=== PATIENT | female | born 1985 | race Caucasian/White ===

== ENCOUNTER 2019-05-03 17:33 | Emergency (ER) | payer BC ==
[2019-05-03 17:55] LABS: #Basophils 0.1 thou/uL (0.0-0.2); #Eosinphils 0.1 thou/uL (0.0-0.7); #Monocytes 0.5 thou/uL (0.11-0.59); #Neutrophils 6.5 thou/uL (1.40-6.50); %Eosinophils 0.7 % (0.0-10.0); %Lymphocytes 29.6 % (21.0-51.0); %Monocytes 4.5 % (0.0-10.0); %Neutrophils 64.3 % (42.0-75.0); Hemoglobin 13.7 g/dL (12.0-16.0); Mean Corpuscular HGB CONC 33.8 g/dL (32.0-36.0); Mean Corpuscular Hemoglobin 29.2 pg (27.0-31.0); Mean Corpuscular Volume 86.5 fL (78.0-98.0); Mean Platelet Volume 7.2 fL (7.4-10.4); Platelet Count 294 thou/uL (130-400); RBC Distribution Width 11.8 % (11.5-14.5); White Blood Cell (WBC) Count 10.2 thou/uL (4.8-10.8)
[2019-05-03 17:58] LABS: BHCG - Serum Negative (NEGATIVE); Pregs Control Background? CLEAR/WHITE (CLR/WHITE); Pregs Control Bar Appear? YES (CONTROL BAR)
[2019-05-03 18:04] LABS: Bilirubin Negative (Negative); Blood, Urine Negative (Negative); Clarity Clear (Clear); Glucose, Urine (Dipstick) Normal (Negative); Leukocyte Negative Leu/uL (Negative); Nitrite Negative (Negative); Protein, Urine (Dipstick) Negative (Neg-Trace); Urobilinogen Normal mg/dL (Less than 2)
[2019-05-03 18:20] LABS: ALT (SGPT) 18 U/L (8-55); AST (SGOT) 15 U/L (5-34); Albumin 4.4 g/dL (3.5-5.0); Alkaline Phosphatase 63 U/L (40-110); Anion Gap 12 mmol/L (10-20); BUN (Urea Nitrogen) 14 mg/dL (7.0-18.7); Bilirubin, Total 0.2 mg/dL (0.2-1.2); Calc. Creatinine Clearance 0 mL/min (70-130); Calcium 9.5 mg/dL (7.8-10.44); Carbon Dioxide 27 mmol/L (22-29); Chloride 105 mmol/L (98-107); Estimated GFR-MDRD 82; Globulin 2.9 g/dL (2.4-3.5); Glucose 95 mg/dL (70-105); Lipase 25 U/L (8-78); Potassium 3.8 mmol/L (3.5-5.1); Protein, Total 7.3 g/dL (6.0-8.3); Sodium 140 mmol/L (136-145)
[2019-05-03] MEDS ORDERED: Morphine 4 MG/ML VIAL ONE (18:24)
[2019-05-03] MEDS ORDERED: Ondansetron PF 4 MG/2 ML Vial ONE (18:24)
--- NOTE | 2019-05-03 20:41 | ULT ---
RIGHT UPPER QUADRANT ULTRASOUND: 05/03/19 HISTORY: Right upper quadrant abdominal pain. FINDINGS: Limited visualized portions of the pancreas demonstrate a normal sonographic appearance, but the og rity of the pancreas is obscured due to shadowing from bowel gas. The visualized portions of the IVC demonstrate a normal sonographic appearance. The liver demonstrates slight nonspecific heterogeneity, but no focal hepatic lesion is seen. The gallbladder is contracted limiting evaluation, no obvious gallbladder calculus is appreciated. Th e common duct is normal in caliber measuring 0.1 cm in diameter. The right kidney has a normal sonogr aphic appearance and measures 11.1 cm in length. IMPRESSION: 1. Gallbladder is contracted which limits adequate evaluation, but no definite gallbladder calcu zakiya is seen, and there is no pericholecystic fluid. If there is persistent concern for gallbladder pa thology, follow-up imaging of the gallbladder after appropriate fasting, is recommended. 2. Slight nonspecific heterogeneity of the liver without focal hepatic lesion. POS: [facility]
== END 2019-05-03 20:59 | disposition home or self-care (01) ==
LOC: ERS 17:33
DX: K80.50 Calculus of bile duct without cholangitis or cholecystitis without obstruction (principal); E78.5 Hyperlipidemia, unspecified
CPT/HCPCS: 36415; 76705; 80053; 81003; 83690; 84703; 85025; 96361; 96374; 96375; J2270; J2405

== ENCOUNTER 2019-05-10 11:16 | Outpatient (CLI) | payer BC ==
--- NOTE | 2019-05-10 12:09 | ULT ---
EXAM: US Gallbladder RUQ CLINICAL HISTORY: Biliary colic. COMPARISON: 05/03/2019 FINDINGS: Evaluation is limited due to prominent bowel. Pancreas: The head of the pancreas has a normal echotexture. The remainder the pancreas is obscured by bowel gas Liver:Heterogeneous echotexture liver may be due to hepatic steatosis or hepatocellular disease. Limi michael evaluation for hepatic masses and intrahepatic biliary dilatation. Right hepatic lobe measures 15.6 cm. Gallbladder: No sonographic evidence of cholelithiasis, gallbladder wall thickening or pericholecysti c fluid Tyson's sign:Positive Portal Vein: Patent. Appropriate directional flow Bile ducts: Common bile duct diameter 0.32 cm Right kidney: No hydronephrosis. Right kidney measures 11.9 cm cm in length. IMPRESSION: 1. No sonographic evidence of cholelithiasis. However, there is a positive Tyson's sign. If there is concern for acalculus cholecystitis, consider HIDA scan. 2. Heterogeneous echotexture of the liver which may be due to hepatic steatosis or hepatocellular dis ease. There is concern for liver masses, abdomen MRI or liver mass protocol CT can be performed.
== END 2019-05-10 11:17 | disposition home or self-care (01) ==
LOC: SCSULT 11:16
PROVIDERS: ATTEND Surgery
DX: K80.50 Calculus of bile duct without cholangitis or cholecystitis without obstruction (principal); R93.2 Abnormal findings on diagnostic imaging of liver and biliary tract
CPT/HCPCS: 76705

== ENCOUNTER 2019-05-24 08:48 | Outpatient (CLI) | payer BC ==
--- NOTE | 2019-05-24 11:52 | NM ---
EXAM: NM Hida Scan W Drug PROVIDED CLINICAL HISTORY: Right upper quadrant abdominal pain COMPARISON: None FINDINGS: There is normal uptake and excretion of radiotracer by the liver. Gallbladder activity is faintly vis ualized by 22 minutes with increasing activity in the gallbladder imaging up to 60 minutes. Bowel activity is visualized by approximately 15 minutes. After 60 minutes of imaging, 8 ounces of ensure w as administered by mouth, and a gallbladder ejection fraction of greater than 90% was obtained. A normal gallbladder ejection fraction is greater than 33%. IMPRESSION: 1. No evidence of cystic or common duct obstruction. 2. Normal gallbladder ejection fraction.
== END 2019-05-24 08:49 | disposition home or self-care (01) ==
LOC: NM 08:48
PROVIDERS: ATTEND Surgery
DX: R10.11 Right upper quadrant pain (principal)
CPT/HCPCS: 78227; A9537

== ENCOUNTER 2021-02-01 15:03 | Outpatient (CLI) | payer BC ==
[2021-02-01 16:28] LABS: ALT (SGPT) 12 U/L (8-55); AST (SGOT) 15 U/L (5-34); Albumin 4.1 g/dL (3.5-5.0); Alkaline Phosphatase 77 U/L (40-110); Anion Gap 12 mmol/L (10-20); BUN (Urea Nitrogen) 13 mg/dL (7.0-18.7); Bilirubin, Direct 0.1 mg/dL (0.1-0.3); Bilirubin, Total 0.3 mg/dL (0.2-1.2); Calc. Creatinine Clearance 0 mL/min (70-130); Calcium 9.7 mg/dL (7.8-10.44); Carbon Dioxide 27 mmol/L (22-29); Chloride 105 mmol/L (98-107); Globulin 2.6 g/dL (2.4-3.5); Glucose 109 mg/dL (70-105); Potassium 4.1 mmol/L (3.5-5.1); Protein, Total 6.7 g/dL (6.0-8.3); Sodium 140 mmol/L (136-145)
[2021-02-01 16:35] LABS: #Eosinphils 0.1 10x3/uL (0.0-0.5); #Monocytes 0.5 10x3/uL (0.0-1.1); #Neutrophils 4.3 10x3/uL (1.5-8.4); %Basophils 0.3 % (0.0-2.0); %Eosinophils 1.1 % (0.0-6.0); %Lymphocytes 31.1 % (18.0-47.0); %Monocytes 6.7 % (0.0-10.0); %Neutrophils 60.5 % (40.0-75.0); Hemoglobin 12.7 g/dL (12.0-15.5); Mean Corpuscular HGB CONC 32.1 g/dL (32.0-36.0); Mean Corpuscular Hemoglobin 26.4 pg (27.0-33.0); Mean Corpuscular Volume 82.3 fl (81.6-98.3); Mean Platelet Volume 9.4 fl (7.4-10.4); Platelet Count 315 10x3/uL (150-450); RBC Distribution Width 14.9 % (11.5-14.5); Red Blood Cell (RBC) Count 4.81 10x6/uL (3.90-5.03); White Blood Cell (WBC) Count 7.1 10x3/uL (3.5-10.5)
[2021-02-01 16:58] LABS: BHCG - Serum Negative (NEGATIVE); Pregs Control Background? CLEAR/WHITE (CLR/WHITE); Pregs Control Bar Appear? YES (CONTROL BAR)
[2021-02-02 13:17] LABS: SARS-CoV-2 PCR by NAA Not Detected (NotDetected)
== END 2021-02-01 15:04 | disposition home or self-care (01) ==
LOC: LABBT 15:03
PROVIDERS: ATTEND Surgery
DX: Z01.812 Encounter for preprocedural laboratory examination (principal); K81.1 Chronic cholecystitis; K42.9 Umbilical hernia without obstruction or gangrene; Z20.822 Contact with and (suspected) exposure to COVID-19
CPT/HCPCS: 80053; 80076; 84703; 85025; U0003; U0005

== ENCOUNTER → 2021-02-06 | Day surgery (SDC) | payer BC ==
[2021-02-05 09:37] VITALS: BMI 37.5
[~2021-02-06] MED LIST: Bupivacaine 0.25% HCL 30 ML VIAL ONE; Dexamethasone 20 MG/5 ML VIAL ONE; Fentanyl 250 MCG/5 ML VIAL ONE; Glycopyrrolate 0.2 MG/ML 5 ML SYRINGE ONE; HYDROcodone/Acetaminophen 5/325 mg Tablet ONE; Ketorolac Tromethamine 30 MG/ML VIAL ONE; Lidocaine 1% PF 5 ML VIAL ONE; Lidocaine 1% w/Epinephrine 1:100K 20 ML VIAL ONE; Lidocaine 2% Jelly 5 ML TUBE ONE; Midazolam HCl 2 mg/2 ml Vial ONE; Ondansetron PF 4 MG/2 ML Vial ONE; PROPOFOL 200 MG/20 ML VIAL ONE; Promethazine HCl 25 MG/ML VIAL ONE; Rocuronium Bromide 10 MG/ML (10ML VIAL) ONE; cefOXitin Sodium/Dextrose 2 GM/50 ML BAG ONE
== END ==
LOC: SDC 06:04
PROVIDERS: ATTEND Surgery
PROC: 0FT44ZZ Resection of Gallbladder, Percutaneous Endoscopic Approach (ICD-10-PCS; principal; 2021-02-06)
DX: K80.10 Calculus of gallbladder with chronic cholecystitis without obstruction (principal); K82.8 Other specified diseases of gallbladder; K42.9 Umbilical hernia without obstruction or gangrene; E78.00 Pure hypercholesterolemia, unspecified; E11.9 Type 2 diabetes mellitus without complications; Z98.890 Other specified postprocedural states
CPT/HCPCS: 88304; J0694; J2250; J2405; J2550; J3010; S0020

== ENCOUNTER 2021-10-08 12:44 | Outpatient (CLI) | payer BC ==
[2021-10-08 14:49] LABS: #Eosinphils 0.1 10x3/uL (0.0-0.5); #Monocytes 0.4 10x3/uL (0.0-1.1); #Neutrophils 4.4 10x3/uL (1.5-8.4); %Basophils 0.6 % (0.0-2.0); %Eosinophils 1.4 % (0.0-6.0); %Lymphocytes 29.1 % (18.0-47.0); %Neutrophils 63.5 % (40.0-75.0); Hemoglobin 13.9 g/dL (12.0-15.5); Mean Corpuscular HGB CONC 33.3 g/dL (32.0-36.0); Mean Corpuscular Hemoglobin 28.7 pg (27.0-33.0); Mean Platelet Volume 9.3 fl (7.4-10.4); Platelet Count 312 10x3/uL (150-450); RBC Distribution Width 13.5 % (11.5-14.5); Red Blood Cell (RBC) Count 4.85 10x6/uL (3.90-5.03)
[2021-10-08 14:56] LABS: BHCG - Serum Negative (NEGATIVE); Pregs Control Background? CLEAR/WHITE (CLR/WHITE); Pregs Control Bar Appear? YES (CONTROL BAR)
[2021-10-08 15:07] LABS: ALT (SGPT) 14 U/L (8-55); AST (SGOT) 15 U/L (5-34); Albumin 4.3 g/dL (3.5-5.0); Alkaline Phosphatase 79 U/L (40-110); Anion Gap 17 mmol/L (10-20); BUN (Urea Nitrogen) 10 mg/dL (7.0-18.7); Bilirubin, Total 0.6 mg/dL (0.2-1.2); Calc. Creatinine Clearance 0 mL/min (70-130); Calcium 9.1 mg/dL (7.8-10.44); Carbon Dioxide 25 mmol/L (22-29); Chloride 104 mmol/L (98-107); Globulin 2.5 g/dL (2.4-3.5); Glucose 80 mg/dL (70-105); Potassium 4.3 mmol/L (3.5-5.1); Protein, Total 6.8 g/dL (6.0-8.3); Sodium 142 mmol/L (136-145)
== END 2021-10-08 12:45 | disposition home or self-care (01) ==
LOC: LABBT 12:44
PROVIDERS: ATTEND Surgery
DX: Z01.812 Encounter for preprocedural laboratory examination (principal); K43.2 Incisional hernia without obstruction or gangrene; Z20.822 Contact with and (suspected) exposure to COVID-19
CPT/HCPCS: 80053; 84703; 85025; U0003; U0005

== ENCOUNTER 2021-10-11 07:43 | Day surgery (SDC) | payer OTHER ==
[2021-10-09 10:46] VITALS: BMI 34.4
[2021-10-11] MEDS ORDERED: Sodium Chloride 0.9% 100 ML ONE (08:03)
[2021-10-11] MEDS ORDERED: CEFAZOLIN 2 GM VIAL ONE (08:03)
[2021-10-11] MEDS ORDERED: Lidocaine 1% MPF 2 ML VIAL ONE (08:04)
[2021-10-11] MEDS ORDERED: Bupivacaine 0.25% HCL 30 ML VIAL ONE (08:15)
[2021-10-11] MEDS ORDERED: Lidocaine 1% w/Epinephrine 1:100K 20 ML VIAL ONE (08:15)
[2021-10-11] MEDS ORDERED: fentaNYL Citrate/PF 100 MCG/2 ML SYRINGE ONE (08:53)
[2021-10-11] MEDS ORDERED: Lidocaine 2% Jelly 5 ML TUBE ONE (08:53)
[2021-10-11] MEDS ORDERED: Promethazine HCl 25 MG/ML VIAL ONE (10:42)
[2021-10-11] MEDS ORDERED: Fentanyl 100 MCG/2 ML VIAL ONE (10:50)
[2021-10-11] MEDS ORDERED: HYDROcodone/Acetaminophen 5/325 mg Tablet ONE (13:10)
== END 2021-10-11 14:02 | disposition home or self-care (01) ==
LOC: SDC 07:43
PROVIDERS: ATTEND Surgery
PROC: 0WUF4JZ Supplement Abdominal Wall with Synthetic Substitute, Percutaneous Endoscopic Approach (ICD-10-PCS; principal; 2021-10-11)
DX: K43.2 Incisional hernia without obstruction or gangrene (principal); E78.00 Pure hypercholesterolemia, unspecified
CPT/HCPCS: C1781; J0690; J2550; J3010; J3490; S0020